=== PATIENT | male | born 1980 | race African-American/Black ===

== ENCOUNTER 2020-01-12 11:12 | Inpatient (IN) | payer OTHER ==
[~2020-01-12] VITALS: Ht 172.7 cm; Wt 72.2 kg
[2020-01-12] MEDS ORDERED: AZITHROMYCIN 500 MG in DEXT 5% WATER 250 ML IV STA (11:56)
[2020-01-12] MEDS ORDERED: DEXAMETHASONE 10 MG/ML VIAL IV ONE (12:15)
[2020-01-12] MEDS ORDERED: ALBUTEROL 6.7GM HFA INHALER ORI ONE (13:15)
[2020-01-12] MEDS ORDERED: ACETAMINOPHEN 325MG TABLET PO ONE (13:15)
[2020-01-12 13:23] LABS: BASOPHILS % 0.8 % (0.0-2.0); EOSINOPHILS % 4.2 % (0.0-5.0); HEMATOCRIT. 51.4 % (42.0-52.0); HEMOGLOBIN. 17.7 g/dL (14.0-18.0); LYMPHOCYTES % 17.8 % (20.0-50.0); MEAN PLATELET VOLUME 9.4 fl (7.4-10.4); MONOCYTES % 8.7 % (2.0-8.0); NEUTROPHILS % 68.5 % (40.0-76.0); PLATELET 297 x1000/uL (130-400); RED BLOOD CELL COUNT 5.71 mill/uL (4.7-6.1); RED CELL DISTRIBUTION WIDTH 12.9 % (11.6-14.6)
[2020-01-12] MEDS ORDERED: IPRATROPIUM BROMIDE (0.02%) 0.5MG/2.5ML NEB ONE (13:25)
[2020-01-12] MEDS ORDERED: ALBUTEROL (0.083%) 2.5MG/3ML NEB ONE (13:25)
[2020-01-12 13:28] LABS: CHLORIDE 109 mEq/L (98-107)
[2020-01-12 13:34] LABS: D-DIMER 0.42 mg/L FEU (<0.50); PROTHROMBIN TIME 10.6 sec (9.6-11.0)
[2020-01-12 13:35] LABS: C REACTIVE PROTEIN QUANT 2.3 mg/L (0.0-3.0)
[2020-01-12 13:38] LABS: CREATINE KINASE 388 IU/L (39-308)
[2020-01-12] MEDS ORDERED: IPRATROPIUM BROMIDE (0.02%) 0.5MG/2.5ML NEB HHN STA (14:08)
[2020-01-12] MEDS ORDERED: ALBUTEROL (0.083%) 2.5MG/3ML NEB HHN STA (14:08)
[2020-01-12] MEDS ORDERED: SODIUM CHLORIDE 0.9% 1,000 ML IV ONE (14:08)
[2020-01-12] MEDS ORDERED: ALBUTEROL 6.7GM HFA INHALER ORI SCH (14:45)
[2020-01-12 14:48] LABS: BG BASE EXCESS -4.3 mmol/L (-2.0-2.0); BG CARBOXYHEMOGLOBIN 0.3 % (0.5-1.5); BG DEOXYHEMOGLOBIN 3.8 % (0.0-5.0); BG FRACTION INSPIRED OXYGEN 60; BG HCO3 ACT 21.6 mmol/L (22.0-26.0); BG METHEMOGLOBIN 0.3 % (0.0-1.5); BG OXYGEN SATURATION 96.2 % (92.0-98.5); BG OXYHEMOGLOBIN 95.6 % (94.0-97.0); BG PCO2 42.7 mmHg (35.0-45.0); BG PH 7.322 (7.350-7.450); BG PO2 85.1 mmHg (75.0-100.0); BG SAMPLE SITE LEFT RADIAL; BG TOTAL HEMOGLOBIN 17.4 g/dL (12.0-18.0)
[2020-01-12] MEDS: FLUTICASONE PROPIONATE 50MCG/SPRAY BOTTLE BOTHNSTRLS SCH ×2 (15:00→21:00)
[2020-01-12] MEDS: MULTIVITAMINS,THER W-MINERALS TABLET PO SCH (15:00)
[2020-01-12] MEDS: FOLIC ACID 1MG TABLET PO SCH (15:00)
[2020-01-12] MEDS ORDERED: CEFTRIAXONE 1 G PREMIX 50 ML IV SCH (15:00)
[2020-01-12] MEDS: FAMOTIDINE 20MG TABLET PO SCH ×2 (15:14→21:00)
[2020-01-12] MEDS: THIAMINE HCL 100MG TABLET PO SCH (15:16)
[2020-01-12] MEDS: METHYLPREDNISOLONE SOD SUCC 125 MG/2 ML VIAL IV SCH ×2 (15:16→23:52)
[2020-01-12] MEDS: ENOXAPARIN 40MG/0.4ML SYR SUBCUT SCH (15:17)
[2020-01-12] MEDS ORDERED: AZITHROMYCIN 500 MG in DEXT 5% WATER 250 ML IV SCH (16:00)
[2020-01-12] MEDS: MONTELUKAST SODIUM 10MG TABLET PO SCH (17:51)
[2020-01-12 21:12] LABS: CLARITY URINE CLEAR (CLEAR); COLOR URINE YELLOW (YELLOW); KETONES URINE NEGATIVE (NEGATIVE); LEUKOCYTE ESTERASE URINE NEGATIVE (NEGATIVE); NITRITE URINE NEGATIVE (NEGATIVE); OCCULT BLOOD URINE NEGATIVE (NEGATIVE); PROTEIN URINE 1+ (NEGATIVE); SPECIFIC GRAVITY URINE 1.016 (1.005-1.030); UROBILINOGEN URINE 0.2 E.U./dL (0.2-1.0)
[2020-01-12] MEDS ORDERED: MAGNESIUM/ALUMINUM HYDROXIDE/SIMETHICONE 30ML UDC PO PRN (21:30)
[2020-01-12] MEDS ORDERED: DIPHENHYDRAMINE 50MG/ML VIAL IV PRN (21:30)
[2020-01-12] MEDS ORDERED: ZOLPIDEM TARTRATE 5MG TABLET PO PRN (21:30)
[2020-01-12] MEDS ORDERED: ACETAMINOPHEN 325MG TABLET PO PRN ×2 (21:30)
[2020-01-12] MEDS ORDERED: ONDANSETRON HCL 4MG/2ML INJ IV PRN (21:30)
[2020-01-12] MEDS: LORATADINE 10MG TABLET PO SCH (23:52)
[2020-01-13] VITALS (7 sets, daily range): BP systolic 124–156; BP diastolic 77–85
[2020-01-13] MEDS ORDERED: AZIT500T8 MT (04:21)
[2020-01-13] MEDS ORDERED: PRED10TA MT (04:21)
[2020-01-13] MEDS: METHYLPREDNISOLONE SOD SUCC 125 MG/2 ML VIAL IV SCH ×4 (04:40→21:27)
[2020-01-13] MEDS: ALBUTEROL (0.083%) 2.5MG/3ML NEB HHN SCH ×3 (05:24→11:53)
[2020-01-13] MEDS: FAMOTIDINE 20MG TABLET PO SCH ×2 (08:47→21:27)
[2020-01-13] MEDS: THIAMINE HCL 100MG TABLET PO SCH (08:47)
[2020-01-13] MEDS: MULTIVITAMINS,THER W-MINERALS TABLET PO SCH (08:47)
[2020-01-13] MEDS: FOLIC ACID 1MG TABLET PO SCH (08:47)
[2020-01-13] MEDS: FLUTICASONE PROPIONATE 50MCG/SPRAY BOTTLE BOTHNSTRLS SCH ×2 (08:49→21:27)
[2020-01-13] MEDS ORDERED: IPRATROPIUM/ALBUTEROL 0.5-3(2.5)MG/3ML NEB HHN PRN (14:15)
[2020-01-13] MEDS: ENOXAPARIN 40MG/0.4ML SYR SUBCUT SCH (15:00)
[2020-01-13] MEDS ORDERED: AZITHROMYCIN 500 MG in DEXT 5% WATER 250 ML IV SCH (16:00)
[2020-01-13] MEDS: IPRATROPIUM/ALBUTEROL 0.5-3(2.5)MG/3ML NEB HHN SCH ×2 (16:36→21:28)
[2020-01-13] MEDS ORDERED: CEFTRIAXONE 1 G PREMIX 50 ML IV SCH (17:00)
[2020-01-13] MEDS: MONTELUKAST SODIUM 10MG TABLET PO SCH (17:58)
[2020-01-13] MEDS: LORATADINE 10MG TABLET PO SCH (21:27)
== END 2020-01-13 21:50 | disposition short-term general hospital (02) | DRG 189 ==
LOC: ER 11:30 → 5WST 13:31 → EDBEDREQ 13:34 → EDBEDREQSVC 13:34 → EDBEDREQTM 13:34 → CANRESERV 01-13 02:07 → ENRESERV 01-13 02:07
PROVIDERS: ADMIT Internal Medicine; ATTEND Internal Medicine
DX: J96.01 Acute respiratory failure with hypoxia (principal); Z20.828 Contact with and (suspected) exposure to other viral communicable diseases; J20.9 Acute bronchitis, unspecified; Z79.899 Other long term (current) drug therapy
CPT/HCPCS: 36415; 36600; 71045; 80053; 81003; 82375; 82550; 82728; 82805; 83605; 83615; 83880; 84145; 84484; 85025; 85379; 85384; 86140; 87804; 93005; 94640; 94644; 99291; J0456; J0696; J1100; J1650; J2930; J7030; J7060; C9803-CS; U0003-CS

== ENCOUNTER 2020-06-08 17:50 | Emergency (ER) | payer OTHER ==
[~2020-06-08] VITALS: Ht 177.8 cm; Wt 78.0 kg
[~2020-06-08 17:50] MED LIST: AZIT500T8 MT; PRED10TA MT
[2020-06-08] MEDS ORDERED: METHYLPREDNISOLONE SOD SUCC 125 MG/2 ML VIAL IV STA (18:40)
[2020-06-08] MEDS ORDERED: IPRATROPIUM BROMIDE (0.02%) 0.5MG/2.5ML NEB HHN STA (18:40)
[2020-06-08] MEDS ORDERED: ALBUTEROL (0.083%) 2.5MG/3ML NEB HHN STA (18:40)
[2020-06-08] MEDS ORDERED: MAGNESIUM 2 G PREMIX 50 ML IV ONE (18:45)
[2020-06-08 19:04] LABS: BASOPHILS % 0.7 % (0.0-2.0); EOSINOPHILS % 11.3 % (0.0-5.0); HEMATOCRIT. 45.2 % (42.0-52.0); HEMOGLOBIN. 15.2 g/dL (14.0-18.0); LYMPHOCYTES % 24.9 % (20.0-50.0); MEAN CORPUSCULAR HEMOGLOBIN 30.2 pg (28.0-32.0); MEAN CORPUSCULAR VOLUME 89.7 fL (80.0-94.0); MEAN PLATELET VOLUME 9.3 fl (7.4-10.4); MONOCYTES % 6.4 % (2.0-8.0); NEUTROPHILS % 56.7 % (40.0-76.0); PLATELET 244 x1000/uL (130-400); RED BLOOD CELL COUNT 5.04 mill/uL (4.7-6.1); RED CELL DISTRIBUTION WIDTH 12.9 % (11.6-14.6)
[2020-06-08 19:10] LABS: CHLORIDE 107 mEq/L (98-107)
[2020-06-08 20:19] VITALS: BP 126/89
== END 2020-06-08 20:22 | disposition home or self-care (01) ==
LOC: ER 17:50 → CANBEDREQ 20:52
DX: J45.909 Unspecified asthma, uncomplicated (principal); Z79.899 Other long term (current) drug therapy
CPT/HCPCS: 36415; 71045; 80053; 83880; 84484; 85025; 93005; 94640; 96365; 96366; 96375; 99285; J2930; J3475; Z7610